=== PATIENT | female | born 1950 | race American Indian/Alaskan Native ===

== ENCOUNTER 2020-08-30 12:10 | Outpatient (CLI) | payer MEDICARE ==
--- NOTE | 2020-08-30 13:44 | Mammography Report ---
DIGITAL DIAGNOSTIC MAMMOGRAM WITH CAD , 08/30/2020 CLINICAL INFORMATION / INDICATION: The patient reports a lump in the upper outer left breast. She pre sents for additional evaluation and surgical consultation with Dr. Tellez today. TECHNIQUE: Digital left mammographic imaging was performed. Spot compression views were obtained. This examination was interpreted with the benefit of Computer-aided Detection analysis. COMPARISON: Diagnostic mammogram and ultrasound, 10/05/2019 from [facility] FINDINGS: Breast Density: There are scattered areas of fibroglandular density. Right breast: No dominant mass, suspicious calcifications or architectural distortion in the right br east. Left breast: There is an irregular density with poorly defined margins at the 2:00 position middle de pth measuring approximately 2.4 x 2.5 cm. This corresponds to the patient's area of palpable concern. IMPRESSION: 1. Irregular density in the left breast at the 2:00 position as described. Findings are highly sugges tive for malignancy. The patient has an appointment for left breast ultrasound and ultrasound-guided biopsy in Dr. Tellez's office later today. Findings were reviewed with Dr. Tellez at the time o f interpretation. Follow up recommendation: Biopsy BI-RADS Category 5: Highly Suggestive of Malignancy. A "normal" or negative report should not discourage follow up or biopsy of a clinically significant f inding. A written summary of these findings will be mailed to the patient. The patient will be entered into a mammography reporting system which will generate a reminder letter for the patient's next appointmen t at the appropriate interval. According to the [employer], yearly mammograms are recommended starting at age 40 and continuing as long as a woman is in good health. Breast MRI is recommended for women with an guillermo roximately 20-25% or greater lifetime risk of breast cancer, including women with a strong family his tory of breast or ovarian cancer and women who have been treated for Hodgkin's disease. Signer Name: Rika Alexandra MD Signed: 08/30/2020 1:40 PM Workstation Name: [id number]
--- NOTE | 2020-08-30 14:32 | Mammography Report ---
DIGITAL DIAGNOSTIC MAMMOGRAM WITH CAD , 08/30/2020 CLINICAL INFORMATION / INDICATION: Left breast mass. Postbiopsy mammogram performed to document clip placement after ultrasound-guided biopsy. TECHNIQUE: Digital left mammographic imaging was performed. This examination was interpreted with the benefit of Computer-aided Detection analysis. COMPARISON: Diagnostic bilateral mammogram, 08/30/2020 FINDINGS: Breast Density: There are scattered areas of fibroglandular density. Postbiopsy mammogram confirms satisfactory positioning of the biopsy clip at the 2:00 position within the targeted irregular density. IMPRESSION: Satisfactory positioning of biopsy clip after ultrasound-guided biopsy. Follow up recommendation: No recall. Post biopsy imaging. A "normal" or negative report should not discourage follow up or biopsy of a clinically significant f inding. A written summary of these findings will be mailed to the patient. The patient will be entered into a mammography reporting system which will generate a reminder letter for the patient's next appointmen t at the appropriate interval. According to the [employer], yearly mammograms are recommended starting at age 40 and continuing as long as a woman is in good health. Breast MRI is recommended for women with an guillermo roximately 20-25% or greater lifetime risk of breast cancer, including women with a strong family his tory of breast or ovarian cancer and women who have been treated for Hodgkin's disease. Signer Name: Rika Alexandra MD Signed: 08/30/2020 2:28 PM Workstation Name: [id number]
== END 2020-08-30 12:11 | disposition home or self-care (01) ==
LOC: SPVWC 12:10
PROVIDERS: ATTEND Surgery
DX: N63.23 Unspecified lump in the left breast, lower outer quadrant (principal); R92.8 Other abnormal and inconclusive findings on diagnostic imaging of breast
CPT/HCPCS: 77066